=== PATIENT | male | born 1955 | race Caucasian/White ===

== ENCOUNTER → 2017-02-20 | Outpatient (CLI) | payer OTHER ==
--- NOTE | ~2017-02-20 | CR98 ---
[facility] A Service of [facility] & [facility] RADIOLOGY TEXT RESULTS PATIENT: SERAFIN GOMEZ LOCATION: [facility] : 53 UNIT #: [id number] AGE: [address]: PIPO PATTERSON SEX: M ORDER DR: [id number] [facility] [address] [facility] [place], [place] [address] [id number] O MR#: [id number] Acc #: [id number] NAME: SERAFIN GOMEZ : 1955 SEX: M STUDY DATE/TIME: 02/20/2017 8:19 UNIT: [facility] ROOM: STUDY DESCRIPTION: CR Eye FB Eddie Attending Physician: Pipo Patterson M.D. Referring Physician: Pipo Patterson M.D. Ordering Physician: Physician Non-Staff Primary Care Physician: Gildardo Warren M.D. MEDICAL IMAGING REPORT This report is preliminary unless electronic signature is present EXAM Orbit series, 3 views, 02/20/2017. CLINICAL HISTORY MRI screening because of previous metal in eye. FINDINGS No evidence of retained metallic foreign body, otherwise normal bilateral facial/orbit series. Dictated by... Alvaro Blankenship M.D. THIS IS AN ELECTRONICALLY VERIFIED REPORT Alvaro Blankenship M.D. at 02/20/2017 4:10 PM REJI/tonia TD: 02/20/2017 13:55 JOB #: [id number] MEDICAL IMAGING REPORT Page 1 of 1 COPY
--- NOTE | ~2017-02-20 | MR103 ---
[facility] A Service of [facility] RADIOLOGY TEXT RESULTS PATIENT: SERAFIN GOMEZ LOCATION: [facility] : 54 UNIT #: [id number] AGE: [address]: PIPO PATTERSON SEX: M ORDER DR: [id number] [facility]. [place], [place] [address] [id number] O MR#: [id number] Acc #: [id number] NAME: SERAFIN GOMEZ : 1955 SEX: M STUDY DATE/TIME: 02/20/2017 8:38 UNIT: [facility] ROOM: STUDY DESCRIPTION: MR Knee Wo Contrast Lt Attending Physician: Pipo Patterson M.D. Referring Physician: Pipo Patterson M.D. Ordering Physician: Staff Doctor Not On Primary Care Physician: Gildardo Warren M.D. MRI CENTER REPORT This report is preliminary unless electronic signature is present. EXAM MRI of the left knee without contrast HISTORY 61-year-old male complains of left knee pain x3 months, sometimes unable weight bear. No specific injury. Clinical concern for meniscal tear. COMPARISON Bilateral knee films 02/16/2017. TECHNIQUE Multiplanar, multiecho imaging was performed of the left knee utilizing a high-field magnet and dedicated protocol. FINDINGS There is a complex tear of the medial meniscus extending from midbody segment into the posterior horn. This primarily represents a horizontal cleavage tear is estimated at least 1.5 cm in length. Some truncation of the inner margin of the posterior horn could represent a small radial component as well. No displaced meniscal fragment. Mild chondromalacia medial compartment. In the lateral compartment, the meniscus and articular cartilage appears intact. Patellar and trochlear cartilage unremarkable. The cruciate and collateral ligaments appear intact. Extensor mechanism is unremarkable. Susceptibility artifact noted in the prepatellar soft tissues could be related to metallic foreign body but no discrete foreign body noted on conventional radiographs. IMPRESSION Complex tear medial meniscus primarily representing a horizontal cleavage tear extending from midbody segment into the posterior horn though there may be a small radial component as well. [facility] A Service [facility] RADIOLOGY TEXT RESULTS PATIENT: SERAFIN GOMEZ [facility] UNIT #: [id number] AGE: [address]: PIPO PATTERSON SEX: M ORDER DR: Dictated by... Silvia Hemphill M.D. THIS IS AN ELECTRONICALLY VERIFIED REPORT Silvia Hemphill M.D. at 02/24/2017 9:02 AM SETH/ervin TD: 02/23/2017 11:03 JOB #: [id number] MRI CENTER REPORT Page 1 of 1 COPY
== END | disposition home or self-care (01) ==
LOC: CMRI 07:00
DX: M25.362 Other instability, left knee (principal); M25.462 Effusion, left knee; M23.222 Derangement of posterior horn of medial meniscus due to old tear or injury, left knee
CPT/HCPCS: 70030; 73721